=== PATIENT | male | born 1970 ===

== ENCOUNTER 2017-09-30 09:00 | Emergency (ER) | payer OTHER, SELFPAY ==
[2017-09-30 09:07] VITALS: BMI 32.1
[2017-09-30 09:14] VITALS: BP 142/83; PULSE 79; RESP 18; TEMP 97.5; O2SAT 98
[2017-09-30] MEDS ORDERED: Naproxen 550 mg Tab PO STA (09:17)
--- NOTE | 2017-09-30 09:29 | ED PDOC ---
Arrival/HPI - General Chief Complaint: Upper Extremity Problem/Injury Time Seen by Provider: 09/30/17 09:09 Historian: Patient - History of Present Illness Narrative History of Present Illness (Text): 09/30/17 09:15 A 47 year old male, with no significant past medical history, presents to the emergency department complaining of left shoulder pain for 1.5 months. Patient reports he was reaching for something and had sudden pain in left shoulder. Describes pain as "stiff" and is on and off. Notes he hit his shoulder again and pain has returned. Patient denies any trauma or any other complaints. PMD: Dr. Yaron Doughertyfour Time/Duration: < month (1.5 months) Past Medical History - Provider Review Nursing Documentation Reviewed: Yes - Infectious Disease Hx of Infectious Diseases: None - Psychiatric Hx Substance Use: No - Surgical History Hx Cholecystectomy: Yes - Anesthesia Hx Anesthesia Reactions: No Hx Malignant Hyperthermia: No Family/Social History - Physician Review Nursing Documentation Reviewed: Yes Family/Social History: No Known Family HX Smoking Status: Never Smoked Hx Alcohol Use: No Hx Substance Use: No Allergies/Home Meds Allergies/Adverse Reactions: Allergies No Known Allergies Allergy (Verified 09/30/17 09:07) Review of Systems - Physician Review All systems were reviewed & negative as marked: Yes - Review of Systems Constitutional: absent: Other (denies any trauma) Musculoskeletal: Other (left shoulder pain) Physical Exam Vital Signs Reviewed: Yes Vital Signs Temp Pulse Resp BP Pulse Ox 09/30/17 09:01 97.5 F L 79 18 142/83 98 Temperature: Afebrile Blood Pressure: Normal Pulse: Regular Respiratory Rate: Normal Appearance: Positive for: Well-Appearing Pain Distress: None Mental Status: Positive for: Alert and Oriented X 3 - Systems Exam Upper Extremity: Present: Tenderness (left shoulder tenderness with ) Medical Decision Making ED Course and Treatment: 09/30/17 09:19 Impression: 47 year old male with left shoulder pain. Physical exam shows left shoulder tenderness. Plan: -- Left Shoulder X-ray -- Anaprox -- Reassess and disposition Progress Notes: 09/30/2017 10:01 Left Shoulder X-Ray FINDINGS: BONES: No fracture or dislocation. Benign-appearing radiolucencies/subcortical cyst 6 mm each over medial scapula. JOINTS: Glenohumeral minimal arthrosis and acromioclaviculat mdoerate osteoarthritis. SOFT TISSUES: Normal. OTHER FINDINGS: None. IMPRESSION: Left Shoulder arthrosis. Benign-appearing intra osseous cycstic foc -medial scapula. Dictator: Tennille Gonzalez MD 09/30/17 11:21 xr neg for acute fracture. advise outpt f/u with ortho - RAD Interpretation Radiology Orders: 09/30/17 09:17 SHOULDER LEFT [RAD] Stat - Medication Orders Current Medication Orders: Discontinued Medications Naproxen (Anaprox Ds) 550 mg PO STAT STA Stop: 09/30/17 09:18 Last Admin: 09/30/17 09:28 Dose: 550 mg - Scribe Statement The provider has reviewed the documentation as recorded by the Stanford Wiggins Provider Scribe Attestation: All medical record entries made by the Scribe were at my direction and personally dictated by me. I have reviewed the chart and agree that the record accurately reflects my personal performance of the history, physical exam, medical decision making, and the department course for this patient. I have also personally directed, reviewed, and agree with the discharge instructions and disposition. Disposition/Present on Arrival - Present on Arrival Any Indicators Present on Arrival: No History of DVT/PE: No History of Uncontrolled Diabetes: No Urinary Catheter: No History of Decub. Ulcer: No History Surgical Site Infection Following: None - Disposition Have Diagnosis and Disposition been Completed?: Yes Diagnosis: Shoulder sprain Disposition: HOME/ ROUTINE Disposition Time: 09:00 Condition: STABLE Discharge Instructions (ExitCare): Shoulder Sprain (ED) Additional Instructions: please see specialist. return to er with worsening symptoms or concerns. Prescriptions: Naproxen [Naprosyn] 500 mg PO BID PRN #14 tablet PRN Reason: Pain, Mild (1-3) Referrals: Yaron Reynoso [Primary Care Provider] - Follow up with primary Yahir Byrnes DO [Staff Provider] - Follow up with primary Forms: [employer] (Frisian)
--- NOTE | 2017-09-30 10:03 | RAD ---
PROCEDURE: Radiographs of the Left Shoulder HISTORY: shoulder pain COMPARISON: No prior. FINDINGS: BONES: No fracture or dislocation. Benign-appearing radiolucencies/ subcortical cyst 6 mm each over medial scapula. JOINTS: Glenohumeral minimal arthrosis and acromioclavicular moderate osteoarthritis. SOFT TISSUES: Normal. OTHER FINDINGS: None. IMPRESSION: Left shoulder arthrosis. Benign-appearing intra osseous cystic foci -medial scapula
== END 2017-09-30 10:15 | disposition home or self-care (01) ==
LOC: ED 09:00
DX: S43.402A Unspecified sprain of left shoulder joint, initial encounter (principal); X50.9XXA Other and unspecified overexertion or strenuous movements or postures, initial encounter; Y92.89 Other specified places as the place of occurrence of the external cause